=== PATIENT | female | born 1940 | race African-American/Black ===

== ENCOUNTER 2017-08-20 10:29 | Day surgery (SDC) | payer OTHER ==
[2017-08-14 14:56] VITALS: BMI 26.6
[2017-08-20] MEDS ORDERED: MIDAZOLAM HCL 2 MG/2 ML SINGLE DOSE VIAL ONE (10:37)
[2017-08-20] MEDS ORDERED: DEXAMETHASONE SOD PHOSPHATE/PF 10 MG/ML SDV ONE (10:37)
[2017-08-20] MEDS ORDERED: BUPIVACAINE HCL/PF (5 MG/ML) 30 ML VIAL IJ ONE (10:37)
[2017-08-20] MEDS ORDERED: fentaNYL CITRATE 250 MCG/5 ML VIAL ONE (10:48)
[2017-08-20] MEDS ORDERED: PROPOFOL 20 ML ONE ×6 (10:48→13:10)
[2017-08-20] MEDS ORDERED: oxyCODONE HCL 10 MG SUSTAINED ACTING TABLET ONE (10:52)
[2017-08-20] MEDS ORDERED: THROMBIN (BOVINE) 5,000 UNIT VIAL TP ONE ×2 (10:52→14:01)
[2017-08-20] MEDS ORDERED: LIDOCAINE 1%/EPI 1:100000 (20 ML MULTI DOSE VIAL) ONE (10:52)
[2017-08-20] MEDS ORDERED: DEXAMETHASONE SOD PHOSPHATE 4 MG/1 ML VIAL ONE (10:53)
[2017-08-20] MEDS ORDERED: ONDANSETRON 4 MG/2 ML VIAL ONE ×2 (10:53→14:44)
[2017-08-20] MEDS ORDERED: LIDOCAINE HCL/PF 2% SDV 5ML VIAL ONE (10:53)
[2017-08-20] MEDS: oxyCODONE HCL 10 MG SUSTAINED ACTING TABLET PO STA ×2 (11:00→19:35)
--- NOTE | 2017-08-20 11:42 | HP ---
History & Physical Update - History History: No Change - Physical Physical: No Change - Assessment Assessment: No Change - Plan Plan: No Change (No new complaints or medications since completing initial H&P ( located in patient's paper chart))
[2017-08-20] MEDS ORDERED: LIDOCAINE 1%/EPI 1:100000 (50 ML MULTI DOSE VIAL) INF ONE (12:35)
[2017-08-20] MEDS ORDERED: ceFAZolin SODIUM 1 GM VIAL ONE (12:37)
[2017-08-20] MEDS ORDERED: GELATIN SPONGE,ABSORBABLE 1 GM PACKET TP ONE (14:01)
[2017-08-20] MEDS ORDERED: oxyCODONE HCL 5 MG TABLET PO PRN ×2 (14:08→14:18)
[2017-08-20] MEDS ORDERED: ONDANSETRON 4 MG/2 ML VIAL IVPUSH PRN ×2 (14:08→14:18)
[2017-08-20] MEDS ORDERED: LACTATED RINGERS SOLUTION 1,000 ML IV SCH ×2 (14:15→14:30)
--- NOTE | 2017-08-20 14:17 | OP ---
Operative Note - Note: Operative Date: 08/20/17 Pre-Operative Diagnosis: Cervical stenosis with radiculopathy Operation: C5/6, C6/7 ACDF Post-Operative Diagnosis: Same as Pre-op Surgeon: Calin Majano Program Aide Group Work: Delio Nugent Anesthesiologist/INFORMATION SYSTEMS DIRECTOR: Chas Villasenor Anesthesia: General Estimated Blood Loss (mls): 20 Drains & Tubes with Location: JUAN (anterior neck) Fluid Volume Replaced (mls): 800 Operative Report Dictated: Yes
--- NOTE | 2017-08-20 14:18 | SURG ---
Surgery Landing Gear Mechanic Note Landing Gear Mechanic: Delio Nugent PA-C Date of Service: 08/20/17 Diagnosis: Cervical stenosis with radiculopathy Procedure: C5/6, C6/7 ACDF, allograft implant x2. neuro-monitoring I was present for the entirety of the operative procedure. For further detail, please refer to operative report. Visit type - Case Type Case Type: Scheduled - New patient This patient is new to me today: Yes Date on this admission: 08/20/17
[2017-08-20] MEDS ORDERED: DEXAMETHASONE 4 MG TABLET (FP) PO SCH (14:30)
[2017-08-20] MEDS ORDERED: ONDANSETRON 4 MG/2 ML VIAL IVPUSH ONE (14:45)
[2017-08-20] MEDS: CEFAZOLIN 1 GM/D5W 1 GM/50 ML BAG IVPB SCH (19:39)
[2017-08-20] MEDS: DEXAMETHASONE 4 MG TABLET (FP) PO SCH (19:40)
[2017-08-20] MEDS: oxyCODONE HCL 5 MG TABLET PO PRN (21:27)
--- NOTE | 2017-08-20 21:53 | OP ---
DATE OF OPERATION: 08/20/2017 PREOPERATIVE DIAGNOSIS: Cervical stenosis, C5-6 and C6-7. POSTOPERATIVE DIAGNOSIS: Cervical stenosis, C5-6 and C6-7. PROCEDURE PERFORMED: 1. Anterior cervical diskectomy and fusion, C5-6 and C6-7. 2. Placement of instrumentation in C5, C6, and C7. 3. Placement of prosthetic cages, C5-6 and C6-7. SURGEON: Calin Majano MD DIGESTER OPERATOR: SPENCER Herrera ESTIMATED BLOOD LOSS: 50 mL INTRAVENOUS FLUIDS: Per Anesthesia. ANESTHESIA: General/cervical block. COMPLICATIONS: None. DISPOSITION: The patient was brought to the PACU in stable condition. INDICATION FOR SURGERY: The patient is a 77-year-old female who has been suffering from pain from her neck down her arms. X-rays and MRI were completed which noted that she had cervical stenosis at C5-6 and C6-7. She had gone through an exhaustive course of treatment for this for which included medications, physical therapy, as well as injections. Unfortunately, her pain continued to persist despite all this. At this point, risks, benefits, and alternatives were discussed, and the patient consented to surgery. DESCRIPTION OF PROCEDURE: Patient was brought to the operating room by the anesthesia staff. After appropriate patient identification was performed, general anesthesia was given. Cervical block was also given. Patient was placed supine on the OR table with the arms tucked in at the sides. All areas of bony prominences were well padded at this time. Two needles were taped onto her neck to doreen off the C5-6 level. An x-ray was taken to confirm this was correct. The needles were removed, and 10 mL of lidocaine with epinephrine were injected into her neck at this time. Her neck was prepped and draped in a sterile manner. At this point, timeout was completed. A 2-inch incision was made in the left side of her neck. Dissection was carried down to the platysma. The platysma was cut in line with the skin incision. Next, the interval between the sternocleidomastoid and strap muscles was developed. Next, the interval between the carotid sheath and tracheoesophagus was developed. A needle was placed into the C5-6 disk. An x-ray was taken to confirm this was correct. Needle was removed, and Phil Campbell pins were placed into the body of C5 and C7. The longus colli muscles were elevated off, and retractor blades were placed in. A knife was used to incise the disks, and then, distraction was applied. At this point, the microscope was brought in. Using a series of pituitaries, Kerrisons, and curettes, a diskectomy was completed. The endplates were decorticated at this time. Cages filled with bone graft were placed into the C5-6 and C6-7. Screw was placed into the body of C5, C6, and C7. Phil Campbell pins were removed. AP and lateral x-rays confirmed the instrumentation to be in good position. Final tightening was performed. A drain was placed. The platysma was closed with 2-0 Vicryl suture. Skin was closed with 3-0 Monocryl suture. Dermabond was applied. Steri-Strips were applied. A sterile dressing was applied. Patient was placed supine on the OR bed, extubated in the OR, and brought to the PACU in stable condition. Carolina CARDOSO/[id number]
[2017-08-20] MEDS ORDERED: ATORVASTATIN CA 20 MG TABLET (FP) PO SCH (22:00)
[2017-08-21] MEDS: DEXAMETHASONE 4 MG TABLET (FP) PO SCH ×2 (03:19→11:10)
[2017-08-21] MEDS: oxyCODONE HCL 5 MG TABLET PO PRN (03:19)
[2017-08-21] MEDS: CEFAZOLIN 1 GM/D5W 1 GM/50 ML BAG IVPB SCH (03:19)
[2017-08-21 06:43] VITALS: PULSE 77
[2017-08-21] MEDS ORDERED: LEVOTHYROXINE NA 100 MCG TABLET (FP) PO SCH (07:00)
--- NOTE | 2017-08-21 08:52 | PN ---
Progress Note (short form) - Note Progress Note: 77yo F s/p C5-C7 ACDF POD 1, seen at bedside. Pt sitting comfortably in chair. States has mild neck pain that is well controlled. Pt denies any fever, chills , n/v. Pt tolerating PO and urinating well. Last Vital Signs Temp Pulse Resp BP Pulse Ox 99.0 F 77 18 137/87 93 L 08/21/17 06:00 08/21/17 06:00 08/21/17 06:00 08/21/17 06:00 08/21/17 06:41 PE: Gen: A&O x3 Resp: breathing comfortably Neck: Neck brace in place, incision clean with no erythema or discharge, drain present with serosanguinous drainage Output: 10ml Ext: upper extremities decreased sensation in hands (baseline), mild weakness b/ l (baseline) <Korey Cain - Last Filed: 08/21/17 08:46> - Note Progress Note: Patient seen and examined Agree with above D/C Planning <Calin Majano - Last Filed: 08/21/17 11:26> Problem List - Problems (1) S/P cervical discectomy Assessment/Plan: Plan: -follow up C-spine x-ray -pain control -DVT ppx -Discharge this afternoon, C-spine x-ray good Code(s): Z98.890 - OTHER SPECIFIED POSTPROCEDURAL STATES <Korey Cain - Last Filed: 08/21/17 08:46>
[2017-08-21 11:01] VITALS: BP 127/78; TEMP 98
--- NOTE | 2017-08-22 14:03 | PATH ---
Surgical Pathology Report Patient Name: MERCED PATEL [facility]. Rec. #: [id number] /Age/Gender: 1940 (Age: 77) / F Account: [id number] Location: [facility] AMBULATORY Taken: 08/20/2017 Received: 08/20/2017 Reported: 08/22/2017 Physicians: Calin Majano M.D. Specimen(s) Received DISC C5-C7 Clinical History Cervical stenosis Final Diagnosis C5-C7 DISC, DISCECTOMY: BONE AND CARTILAGINOUS TISSUE WITH DEGENERATIVE CHANGE. Electronically Signed Laine Mendieta M.D. Gross Description Received in formalin, labeled "C5-C7 disc" is a 2 x 2 x 0.5 cm aggregate of londono soft tissue fragments. A sales representative canvas products portion is submitted in one cassette. JARET/08/21/2017 alise/08/21/2017
== END 2017-08-20 11:30 | disposition home or self-care (01) ==
LOC: FASU 10:29 → FM/S 16:13
PROVIDERS: ATTEND Orthopaedic Surgery Orthopaedic Surgery of the Spine
PROC: 0RG10A0 Fusion of Cervical Vertebral Joint with Interbody Fusion Device, Anterior Approach, Anterior Column, Open Approach (ICD-10-PCS; 2017-08-20)
PROC: 0RG10K0 Fusion of Cervical Vertebral Joint with Nonautologous Tissue Substitute, Anterior Approach, Anterior Column, Open Approach (ICD-10-PCS; 2017-08-20)
PROC: 0RB30ZZ Excision of Cervical Vertebral Disc, Open Approach (ICD-10-PCS; principal; 2017-08-20 09:45)
DX: M48.02 Spinal stenosis, cervical region (principal)
CPT/HCPCS: 22551; 22552; 22845; 22853; C1889; 72050-TC-FY; 88304-TC; 94760; 97116-GP; 97161-GP